=== PATIENT | female | born 1970 | race African-American/Black ===

== ENCOUNTER 2025-05-26 10:21 | Emergency (ER) | payer MEDICAID ==
[~2025-05-26] VITALS: Ht 175.3 cm; Wt 90.0 kg
[2025-05-26 10:29] VITALS: TEMP 36.7; O2SAT 99
[2025-05-26 11:18] VITALS: BP 128/90; PULSE 77; RESP 16; O2SAT 100
[2025-05-26] MEDS: MECLIZINE 25MG TABLET PO ONE (11:29)
[2025-05-26] MEDS: SODIUM CHLORIDE 0.9% 1,000 ML IV ONE (11:29)
[2025-05-26] MEDS ORDERED: ACETAMINOPHEN 500MG TABLET PO ONE (11:45)
[2025-05-26 12:40] LABS: BASOPHILS % 0.4 % (0.0-2.0); EOSINOPHILS % 0.5 % (0.0-5.0); HEMATOCRIT. 35.1 % (36.0-48.0); HEMOGLOBIN. 11.6 g/dL (12.0-16.0); LYMPHOCYTES % 12.2 % (20.0-50.0); MEAN PLATELET VOLUME 8.7 fl (7.4-10.4); MONOCYTES % 6.8 % (2.0-8.0); NEUTROPHILS % 80.1 % (40.0-76.0); PLATELET 196 x1000/uL (130-400); RED BLOOD CELL COUNT 3.57 mill/uL (4.2-5.4); RED CELL DISTRIBUTION WIDTH 12.6 % (11.6-14.6)
[2025-05-26 13:01] LABS: CREATININE 1.7 mg/dL (0.6-1.0); ETHANOL BLOOD < 10 mg/dL (<10); TROPONIN I HIGH SENSITIVITY 5 ng/L (3.0-34); UREA NITROGEN BLOOD 24 mg/dL (9-23)
[2025-05-26] MEDS ORDERED: POTASSIUM CHLORIDE 20MEQ/PACKET PO SCH (13:15)
== END 2025-05-26 11:30 | disposition home or self-care (01) ==
LOC: ER 10:21
DX: B34.9 Viral infection, unspecified (principal); I10 Essential (primary) hypertension; R55 Syncope and collapse; E87.6 Hypokalemia
CPT/HCPCS: 80048; 80320; 85025; 84484; 36415; 71045; 70450; 93005; 96360; 99285; J8597; J7030; Z7610; 99284; G0480